=== PATIENT | male | born 1985 ===

== ENCOUNTER 2017-12-14 16:27 | Observation (INO) | payer MEDICARE, OTHER ==
[2017-12-14 16:35] VITALS: BMI 28.3
[2017-12-14] MEDS ORDERED: Nitroglycerin 2% Ointment Foilpak UD TOP STA (16:39)
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
[2017-12-14 17:33] LABS: BASO # 0.09 K/mm3 (0.0-2.0); BASO % 0.6 % (0.0-3.0); EOS # 0.5 (0.0-0.7); EOS % 2.8 % (1.5-5.0); GRAN # 11.98 (1.4-6.5); GRAN % 75.5 % (50.0-68.0); HEMOGLOBIN 12.5 g/dL (14.0-18.0); LYMPH # 1.3 (1.2-3.4); LYMPH % 8.1 % (22.0-35.0); MEAN CELL VOLUME 95.2 fl (80.0-105.0); MEAN CORPUSCULAR HEMOGLOBIN 31.7 pg (25.0-35.0); MEAN CORPUSCULAR HGB CONC 33.3 g/dl (31.0-37.0); MEAN PLATELET VOLUME 9.2 fl (7.0-11.0); MONO # 2.1 (0.1-0.6); RBC 3.94 10^6/uL (3.5-6.1); RED CELL DISTRIBUTION WIDTH 15.9 % (11.5-14.5); WHITE BLOOD COUNT 15.9 10^3/uL (4.5-11.0)
[2017-12-14 17:42] LABS: INR 1.16; PARTIAL THROMBOPLASTIN TIME 33.6 Seconds (25.1-36.5); PROTHROMBIN TIME 13.3 SECONDS (9.4-12.5)
--- NOTE | 2017-12-14 17:45 | RAD ---
Date of service: 12/14/2017 HISTORY: cp COMPARISON: 03/31/2014 FINDINGS: LUNGS: No active pulmonary disease. PLEURA: No significant pleural effusion identified, no pneumothorax apparent. CARDIOVASCULAR: No aortic atherosclerotic calcification present. Normal cardiac size. No pulmonary vascular congestion. OSSEOUS STRUCTURES: No significant abnormalities. VISUALIZED UPPER ABDOMEN: Normal. OTHER FINDINGS: None. IMPRESSION: No active disease.
[2017-12-14 17:46] LABS: ALB/GLOB RATIO 0.9 (1.1-1.8); ALBUMIN 4.6 g/dL (3.0-4.8); CALCIUM 9.9 mg/dL (8.4-10.5)
[2017-12-14 18:00] LABS: TROPONIN I 0.02 ng/mL
[2017-12-15 06:02] VITALS: O2SAT 98
[2017-12-15] MEDS ORDERED: Pantoprazole 20 mg EC Tab PO SCH (07:30)
[2017-12-15 08:08] LABS: HEMOGLOBIN 11.7 g/dL (14.0-18.0); MEAN CELL VOLUME 95.6 fl (80.0-105.0); MEAN CORPUSCULAR HEMOGLOBIN 30.5 pg (25.0-35.0); MEAN PLATELET VOLUME 9.2 fl (7.0-11.0); RBC 3.83 10^6/uL (3.5-6.1); RED CELL DISTRIBUTION WIDTH 15.9 % (11.5-14.5); WHITE BLOOD COUNT 11.9 10^3/uL (4.5-11.0)
[2017-12-15 08:19] LABS: TROPONIN I 0.03 ng/mL
[2017-12-15 08:22] LABS: BLOOD UREA NITROGEN 16 mg/dL (7-21); CALCIUM 8.9 mg/dL (8.4-10.5); GFR NON-AFRICAN AMERICAN 9; HDL CHOLESTEROL 32 mg/dL (29-60)
[2017-12-15 08:27] LABS: LDL CHOLESTEROL 85 mg/dL (0-129)
[2017-12-15 08:34] LABS: IRON 90 ug/dL (45-180)
[2017-12-15 09:16] LABS: % IRON SATURATION 39 % (20-55); TOTAL IRON BINDING CAPACITY 226 ug/dL (261-462)
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
[2017-12-15] MEDS ORDERED: [UNRECOGNIZED DRUG - REMARK] PO SCH (10:00)
[2017-12-15] MEDS ORDERED: CALCIUM CARBONATE 500 MG PO SCH (10:00)
[2017-12-15] MEDS ORDERED: Non Formulary Medication (Omeprazole [Omeprazole] 20 MG) PO SCH (10:00)
[2017-12-15] MEDS ORDERED: HYDRALAZINE HCL 50 MG PO SCH (10:00)
[2017-12-15] MEDS ORDERED: Multivitamin Vitamin B Complex (Nephro-Vite) Tab PO SCH (10:00)
--- NOTE | 2017-12-15 11:13 | CARD ---
APPROVED REPORT Date of service: 12/14/2017 EKG Measurement Heart [id number] CO [id number] <Conclusion> Normal sinus rhythm Prolonged QT Abnormal ECG
--- NOTE | 2017-12-15 11:19 | CARD ---
APPROVED REPORT Date of service: 12/15/2017 EKG Measurement Heart [id number] <Conclusion> Normal sinus rhythm Normal ECG
[2017-12-15 11:50] VITALS: BP 146/84; PULSE 75; RESP 20; TEMP 99.3
[2017-12-15] MEDS ORDERED: Insulin Reg-LOW-Coverage SC SCH (16:30)
[2017-12-15 20:41] LABS: FOLATE > 20.0 ng/mL
--- NOTE | 2017-12-15 21:01 | CON ---
DATE: 12/15/2017 REASON FOR CONSULTATION: ESRD, abdominal pain, and hypokalemia. HISTORY OF PRESENT ILLNESS: A 32-year-old young male previously unknown to me. The patient admitted on 12/14/2017 with complaints of chest pain and lower abdominal pain. Currently, the patient reports pain is better. He denies any fever or chills. He denies any nausea or vomiting. He denies any constipation. The patient had stable dialysis yesterday. He reports that chest pain started after dialysis. In the emergency room, he was found to have a potassium of 3.4, elevated WBC count of 15.9. PAST MEDICAL AND SURGICAL HISTORY: Severe hypertension; hypertensive heart disease; CHF; ESRD, on dialysis for 3 years; left arm AV fistula; blind left eye; and anemia of chronic kidney disease. FAMILY HISTORY: Hypertension. SOCIAL HISTORY: Current smoker, no alcohol use, and no IV drug abuse. ALLERGIES: NO KNOWN DRUG ALLERGIES. MEDICATIONS AT HOME: Aspirin 81, omeprazole 20, Coreg 25 b.i.d., enalapril 20 daily, metoclopramide 5 t.i.d., and zolpidem 5. REVIEW OF SYSTEMS: All systems are reviewed, pertinent positives as mentioned in the history of presenting illness, rest unremarkable. PHYSICAL EXAMINATION: GENERAL: Young male lying in bed. VITAL SIGNS: Blood pressure 150/78, heart rate 74, respiratory rate 18, and temperature 98.5. HEENT: Normocephalic and atraumatic, positive pallor, corneal opacity, left eye. NECK: Supple. No JVD. LUNGS: Bilateral equal air entry, bilateral equal expansion, no rales. CARDIAC: S1 and S2, regular rate rhythm, no murmur, no rub. ABDOMEN: Soft, nontender, nondistended, bowel sounds present. EXTREMITIES: No lower extremity edema. LABORATORY DATA: WBC 11.9, hemoglobin 11.7, hematocrit 36.6, platelets 249, and polys 75%. Sodium 139, potassium 3.7, chloride 101, CO2 of 26, BUN 16, creatinine 7.3, glucose 80, and calcium 8.9. Iron saturation 39, iron 90, AST 42, and ALT 22. Troponin 0.02, second set is 0.03 and albumin 4.6. CURRENT MEDICATIONS: Apresoline 50 t.i.d., Coreg 25 b.i.d., Nephro-Mandeep, and Protonix. ASSESSMENT: 1. Abdominal pain/chest pain/leukocytosis ?etiology, chest pain noncardiac. 2. Hypokalemia, post-dialysis lab, now resolved. 3. Hypertension, suboptimally controlled, restart enalapril. 4. End-stage renal disease. 5.. Hyperphosphatemia/secondary hyperparathyroidism. PLAN: 1. Restart enalapril. 2. No indication for dialysis. 3. Next dialysis will be on Saturday. 4. The patient appears afebrile/nontoxic, no objection to discharge from the renal standpoint. Clau Reza MD
--- NOTE | 2017-12-16 08:46 | CON ---
ADDENDUM: This note is addition to the note dictated by the nurse practitioner. DATE: 12/15/2017 REASON FOR CONSULTATION: Cardiac evaluation, history of end-stage renal disease, on dialysis, admitted with abdominal pain radiating to the chest. This is a 32-year-old male with a past medical history significant for end-stage renal disease, on dialysis, diabetes, hypertension, hyperlipidemia, being followed at [facility], a resident of [place], visiting his son and got abdominal pain, so came in here. Also complains of some chest pain. So far, troponin remains negative. EKG shows normal sinus at 94. All the troponins remain negative. I discussed with the patient so far atypical chest pain. Recommended discharge to telemetry. Further recommendations as per Dr. Garcia. If the patient remains stable from GI point of view, he can be discharged home, follow up in [place], have a dialysis on Saturday. admitted the patient because of underlying multiple risk factors, diabetes, hypertension, hyperlipidemia, end-stage kidney disease. Suggested an echo and a stress test as an outpatient with PMD in [place]. Okay to be discharged from cardiac point of view. Thank you, Dr. Garcia, for providing us the opportunity in taking care of your patient. Brenda David MD
== END 2017-12-15 16:20 | disposition home or self-care (01) ==
LOC: ED 16:27 → ERH 18:11 → 2RSO 19:16
PROVIDERS: ADMIT Internal Medicine; ATTEND Internal Medicine
DX: R07.89 Other chest pain (principal); I13.2 Hypertensive heart and chronic kidney disease with heart failure and with stage 5 chronic kidney disease, or end stage renal disease; I50.9 Heart failure, unspecified; K21.9 Gastro-esophageal reflux disease without esophagitis; N18.6 End stage renal disease; Z99.2 Dependence on renal dialysis; D63.1 Anemia in chronic kidney disease; D72.829 Elevated white blood cell count, unspecified; E10.22 Type 1 diabetes mellitus with diabetic chronic kidney disease; E78.5 Hyperlipidemia, unspecified; E83.39 Other disorders of phosphorus metabolism; E87.6 Hypokalemia; F12.90 Cannabis use, unspecified, uncomplicated; F17.200 Nicotine dependence, unspecified, uncomplicated; H54.62 Unqualified visual loss, left eye, normal vision right eye; N25.81 Secondary hyperparathyroidism of renal origin; Z79.4 Long term (current) use of insulin; Z79.82 Long term (current) use of aspirin
CPT/HCPCS: 36415; 71045; 80048; 80053; 80061; 82550; 82607; 82746; 82948; 83036; 83540; 83550; 83615; 83690; 83735; 84443; 84484; 85025; 85027; 85610; 85730; 93005; 96374; 99283; G0378; J2405